=== PATIENT | male | born 1970 | race Caucasian/White ===

== ENCOUNTER 2021-03-02 08:27 | Day surgery (SDC) | payer BC ==
[2021-02-24 09:00] LABS: Basophils % 1.9 % (0-1.3); Hematocrit 45.4 % (39.6-49.0); Lymphocytes % 28.4 % (15.3-44.8); MPV 8.6 fL (7.6-11.3); RBC Red Blood Cell Count 5.33 M/uL (4.33-5.43)
--- NOTE | 2021-02-24 09:11 | RAD REPORT ---
EXAM DESCRIPTION: RAD - Chest Pa And Lat (2 Views) - 02/24/2021 8:49 am CLINICAL HISTORY: preop Chest pain. COMPARISON: No comparisons FINDINGS: The lungs are clear. The heart is normal in size. No displaced fractures. IMPRESSION: No acute or concerning finding suspected.
[2021-02-24 09:19] LABS: Potassium 4.8 mmol/L (3.5-5.1)
[2021-03-02] MEDS ORDERED: NA CHLORIDE 0.9% 1,000 ML ONE (09:07)
[2021-03-02] MEDS: CEFAZOLIN/SWI 1gm 1 GM/10 ML SYR ONE ×3 (09:45→10:55)
[2021-03-02] MEDS ORDERED: LIDOCAINE 1% MPF 5 ML VIAL ONE (10:47)
[2021-03-02] MEDS ORDERED: propofoL 200 MG/20 ML VIAL IV ONE (10:47)
[2021-03-02] MEDS ORDERED: MIDAZOLAM HCL 2 MG/2 ML INJ ONE (10:47)
[2021-03-02] MEDS ORDERED: FENTANYL CITR 100 MCG/2 ML ONE (10:47)
[2021-03-02] MEDS ORDERED: KETOROLAC 30 MG/ML INJ ONE (11:18)
[2021-03-02] MEDS ORDERED: ONDANSETRON 4 MG/2 ML VIAL ONE (11:18)
[2021-03-02] MEDS ORDERED: MEPERIDINE HCL 25 MG/ML SYR ONE (12:07)
[2021-03-02] MEDS ORDERED: PROMETHAZINE INJ 25 MG/ML AMP ONE (12:07)
[2021-03-02] MEDS ORDERED: HYDROCODONE/APAP 7.5/325 MG TAB ONE (12:36)
[2021-03-02 13:50] VITALS: BP 110/60; TEMP 98; O2SAT 98
--- NOTE | 2021-03-02 22:10 | OP ---
Date of Procedure: 03/02/2021 Surgeon: Sid Pierce MD Poleyard Supervisor: SURY Iqbal. Preoperative Diagnosis: Right back mass. Postoperative Diagnosis: Right back mass. Procedure: Wide excision of right back mass 6 x 3 cm with layered closure. Estimated Blood Loss: Minimal. Specimen: Right back mass. Findings: Likely sebaceous cyst. Anesthesia: General. Complications: None. Drains: Quarter-inch Ray. Disposition: The patient tolerated the procedure in stable condition, taken to Recovery in good gene ral condition. Procedure In Detail: The patient was brought to the OR and placed in supine position. General anest hesia begun. The patient was placed in left lateral position and then prepped and draped in usual st erile fashion. Marcaine 0.5% was infiltrated at the end of the case and then a 15 blade was used to make a 6 x 3 cm incision on the right mid back. Subcutaneous tissue was divided. Entire cyst identi fied and excised. Sent to Pathology as specimen. Wound was irrigated. Bleeding was controlled with cautery, and then Creola quarter-inch placed and secured with 3-0 nylon. 2-0 chromic used to reapp roximate the deep subcutaneous tissue and the subcutaneous tissue and 3-0 nylon used to close the ski n. Sterile dressing was applied. The patient was awakened and taken to Recovery in good general con dition. Discharge Note: The patient will go to Day Surgery and home when stable. Disposition: Home. Condition: Stable. Discharge Instructions: Resume home medications and diet. Activity as tolerated. No heavy lifting. Remove outer dressing in 2 days. Shower. Keep wound clean and dry. Follow up in my office in a aura mooney. Call for appointment. Tylenol No. 3 one tablet p.o. q.4 p.r.n. pain. Cipro 500 mg p.o. q.12. /MODL Voice ID: [id number] Report ID: [id number]
== END 2021-03-02 13:20 | disposition home or self-care (01) ==
LOC: OR 08:27
PROVIDERS: ATTEND Surgery
PROC: 0JB70ZZ Excision of Back Subcutaneous Tissue and Fascia, Open Approach (ICD-10-PCS; principal; 2021-03-02 10:00)
DX: L72.0 Epidermal cyst (principal); Z20.822 Contact with and (suspected) exposure to COVID-19
CPT/HCPCS: 93005; 85025; 80048; 36415; 82947 ×2; 88305; 71046; 11406; U0002; J2704; J2550; J2250; J3010; J2175; J0690; J7030; J2405; 88304

== ENCOUNTER 2025-01-01 05:28 | Inpatient (IN) | payer BC ==
--- OUTSIDE RECORDS SUMMARY | 2025-01-01 05:31 | XMS REPORT | Continuity of Care Document ---
Author Name Unknown Address [address] [place] [address] [place], [place] [address]ect Address [address] [place] [address] [address] [place] [address] Care Team Providers Care Cupola Melting Supervisor Name Role Phone Unavailable Unavailable Unavailable Encounters Start Date/Time End Date/Time Encounter Type Admission Type Attending Clinicians Care Facility Care Department Encounter ID Source 2022-01-30 07:54:01 Outpatient [facility] [id number] 2 [facility]
[2025-01-01] MEDS ORDERED: MORPHINE 4 MG/ML SYR ONE (06:23)
[2025-01-01] MEDS ORDERED: NA CHLORIDE 0.9% 1,000 ML ONE (06:23)
[2025-01-01] MEDS ORDERED: NA CHLORIDE 0.9% 100 ML ONE (06:23)
[2025-01-01] MEDS ORDERED: CEFEPIME 2 GM VIAL ONE (06:23)
[2025-01-01] MEDS ORDERED: ONDANSETRON 4 MG/2 ML VIAL ONE (06:23)
[2025-01-01 06:40] LABS: Absolute Basophils 0.1 K/uL (0-0.5); Absolute Eosinophils 0.1 K/uL (0-0.5); Absolute Lymphocytes (CBC) 1.3 K/uL (0.7-4.9); Absolute Monocytes 1.7 K/uL (0.1-1.3); Absolute Neutrophil 9.2 K/uL (1.8-8.0); Basophils % 0.6 % (0-1.3); Eosinophils % 0.8 % (0-4.4); Hematocrit 39.5 % (39.6-49.0); Hemoglobin 13.8 g/dL (13.6-17.9); Lymphocytes % 10.2 % (15.3-44.8); MCH 28.2 pg (27.0-35.0); MCV 80.6 fL (80-100); MPV 8.5 fL (7.6-11.3); Monocytes % 13.9 % (3.3-12.3); Neutrophils % 74.5 % (41.7-73.7); Platelets 273 thou/uL (152-406); Red Cell Distribution Width 14.6 % (12.1-15.2)
[2025-01-01 07:06] LABS: Albumin 2.8 g/dL (3.4-5.0); Albumin/Globulin Ratio 0.6 (1.1-1.8); Anion Gap 11.1 mEq/L (5.0-15.0); Bilirubin Total 0.9 mg/dL (0.2-1.0); Globulin 4.8 g/dL (2.3-3.5); Potassium 3.1 mEq/L (3.5-5.1); Protein, Total 7.6 g/dL (6.4-8.2)
--- NOTE | 2025-01-01 07:18 | RAD REPORT ---
Exam:Foot Right 3 View CLINICAL HISTORY: Right foot pain FINDINGS: No fracture or dislocation seen. Ulceration lateral soft tissue plantar aspect of the proximal forefoot. Prominent degenerative changes involve tarsometatarsal joints. Lucency within the cuboid probably a c yst Cortical irregularity involves the bases of several metatarsals. These could be degenerative in natur e or indicate osteomyelitis. MRI would be helpful for further evaluation. Calcaneal spurs
--- NOTE | 2025-01-01 07:39 | ER ---
Nurse's Notes [facility] Name: Joe Denson Age: 54 yrs Sex: Male : 1970 Arrival Date: 01/01/2025 Time: 05:28 Bed 8 Private MD: Diagnosis: Cellulitis of right lower limb;Acute right foot cellulitis, acute right foot plantar diabetic ulcer with infection, Presentation: 01/01 05:55 Chief complaint: Patient states: left foot pain swelling and redness problems off and kl on since June worsened since Sunday. Coronavirus screen: Vaccine status: Patient reports receiving the 2nd dose of the covid vaccine. Ebola Screen: Patient negative for fever greater than or equal to 101.5 degrees Fahrenheit, and additional compatible Ebola Virus Disease symptoms. Initial Sepsis Screen: Does the patient meet any 2 criteria? Does the patient have a suspected source of infection?. Risk Assessment: Do you want to hurt yourself or someone else? Patient reports no desire to harm self or others. 05:55 Method Of Arrival: Ambulatory kl 05:55 Acuity: ESTELITA 3 kl 05:59 Note [place] Triage Assessment: 05:57 General: Appears uncomfortable, well groomed, well developed, Behavior is calm, kl cooperative. Pain: Complains of pain in right foot. Derm:. Derm: redness and swelling to right foot and ankle. Musculoskeletal: Swelling present in right foot. Historical: - Allergies: 05:57 PENICILLINS; kl - PMHx: 05:57 diabetes mellitus; Hypercholesterolemia; Hypertensive disorder; kl - Immunization history:: Adult Immunizations up to date. - Infectious Disease History:: Denies. - Social history:: Smoking status: Patient denies any tobacco usage or history of. - Family history:: not pertinent. Screenin:14 [facility] ED Fall Risk Assessment (Adult) History of falling in the last 3 months, cp4 including since admission No falls in past 3 months (0 pts) Confusion or Disorientation No (0 pts) Intoxicated or Sedated No (0 pts) Impaired Gait No (0 pts) Mobility Assist Device Used No (0 pt) Altered Elimination No (0 pt) Score/Fall Risk Level 0 - 2 = Low Risk Oriented to surroundings, Maintained a safe environment, Assessed \T\ reinforced patient's understanding of fall precautions, Hourly rounding (assess needs \T\ fall precautionary measures) done. Abuse screen: Denies threats or abuse. Denies injuries from another. Nutritional screening: No deficits noted. Tuberculosis screening: No symptoms or risk factors identified. Assessment: 07:12 General: Appears in no apparent distress. uncomfortable, Behavior is calm, cooperative, cp4 appropriate for age. Pain: Complains of pain in right foot. Neuro: Level of Consciousness is awake, alert, obeys commands, Oriented to person, place, time, situation. Cardiovascular: Patient's skin is warm and dry. Respiratory: Airway is patent Respiratory effort is even, unlabored. GI: Reports diarrhea. : No signs and/or symptoms were reported regarding the genitourinary system. EENT: No signs and/or symptoms were reported regarding the EENT system. Derm: Reports pain wound to right foot. Musculoskeletal: No signs and/or symptoms reported regarding the musculoskeletal system. 09:10 Reassessment: Patient appears in no apparent distress at this time. Patient and/or db family updated on plan of care and expected duration. Pain level reassessed. Patient is alert, oriented x 3, equal unlabored respirations, skin warm/dry/pink. General: Appears in no apparent distress. comfortable, Behavior is calm, cooperative. Neuro: Level of Consciousness is awake, alert, obeys commands, Oriented to person, place, time, situation. 12:29 Reassessment: SEE [facility] FOR CONTINUED DOCUMENTATION. db Vital Signs: 05:55 BP 94 / 54; Pulse 62; Resp 18; Temp 98.1(O); Pulse Ox 100% ; Weight 123.38 kg (R); kl Height 6 ft. 0 in. ; Pain 7/10; 06:30 BP 117 / 74; Pulse 59; Resp 18; Pulse Ox 99% ; cp4 07:30 BP 115 / 57; Pulse 95; Resp 16; Pulse Ox 95% on R/A; db 08:00 BP 109 / 65; Pulse 98; Resp 16; Pulse Ox 95% on R/A; db 09:00 BP 112 / 65; Pulse 97; Resp 16; Pulse Ox 95% on R/A; db 05:55 Body Mass Index 36.89 (123.38 kg, 182.88 cm) kl 05:55 Pain Scale: Adult [place] Coma Score: 07:34 Eye Response: spontaneous(4). Motor Response: obeys commands(6). Verbal Response: sp4 oriented(5). Total: 15. ED Course: 05:32 Patient arrived in ED. gm2 05:42 Johnie Taylor MD is Attending Physician. sp4 05:57 Triage completed. kl 06:10 Dressings: Kerlix X 1; lateral side of right foot and arch of right foot 4X4s X 1; rv1 lateral side of right foot and arch of right foot. 06:14 Initial lab(s) drawn, by me, sent to lab. First set of blood cultures drawn Second set cp4 of blood cultures drawn. 06:19 Mary Cat is Primary Nurse. cp4 06:43 Foot Right 3 View XRAY In Process Unspecified. EDMS 07:00 Arm band placed on Patient placed in an exam room. db 07:14 No provider procedures requiring assistance completed. Inserted saline lock: 20 gauge cp4 in right antecubital area, using aseptic technique. Blood collected. Flushed with 10 mL NS. 07:14 Bed in low position. Call light in reach. Side rails up X 1. cp4 07:37 Sai Weldon MD is Hospitalizing Provider. sp4 09:12 Pulse ox on. NIBP on. db 12:29 Patient admitted, IV remains in place. db 12:29 Provided Education on: ADMISSION. db Administered Medications: 06:34 Drug: morphine IVP or IV 4 mg IVP once over 4 mins Route: IVP; Infused Over: 4 mins; cp4 Site: right antecubital; 09:10 Follow up: Response: No adverse reaction; Pain is decreased db 06:35 Drug: NS 0.9% IV 1000 ml IV at 1 bolus Per protocol; to be given as a bolus over 60 cp4 minutes Route: IV; Rate: 1 bolus; Site: right antecubital; 09:10 Follow up: Response: No adverse reaction; IV Status: Completed infusion; IV Intake: db 1000ml 06:35 Drug: Ondansetron IVP 4 mg IVP once; over 2 minutes Route: IVP; Site: right antecubital;cp4 09:09 Follow up: Response: No adverse reaction db 06:35 Drug: Cefepime IVPB 2 grams IVPB at 200 ml/hr once over 30 mins; (mix in NS 100 mL) cp4 Route: IVPB; Rate: 200 ml/hr; Infused Over: 30 mins; Site: right antecubital; 09:10 Follow up: Response: No adverse reaction; IV Status: Completed infusion; IV Intake: db 100ml 08:40 Drug: vancoMYCIN IVPB 2 grams IVPB at calculated rate once Route: IVPB; Rate: db calculated rate; Site: right antecubital; 17:31 Follow up: IV Status: Completed infusion bp Medication: 07:14 VIS not applicable for this client. cp4 Intake: 09:10 IV: 100ml; Total: 100ml. db 09:10 IV: 1000ml; Total: 1100ml. db Outcome: 07:38 Decision to Hospitalize by Provider. sp4 12:29 Admitted to ER Hold. [facility]. db 12:29 Condition: stable 12:29 Instructed on the need for admit, 18:48 Patient left the ED. iw Signatures: Dispatcher [employer] EDMS Mireya Hua RN RN kl Williams, Irene, RN RN iw Peltier, Brian, RN RN bp Benton, Danielle, RN RN db Villegas, Rebecca rv1 Potepalov, Sergey, MD MD sp4 Mary Cat Ginger 2 Corrections: (The following items were deleted from the chart) 05:57 05:57 PMHx: on antibiotic (bactrim) for staph infection; chaz ware
--- NOTE | 2025-01-01 07:39 | EDPHYS ---
Physician Documentation [facility] Name: Joe Denson Age: 54 yrs Sex: Male : 1970 Arrival Date: 01/01/2025 Time: 05:28 Bed 8 Private MD: ED Physician Johnie Taylor HPI: 01/01 05:42 This 54 yrs old Male presents to ER via Unassigned with complaints of Foot sp4 Pain, Swelling of Lower Extremity. 07:34 Patient presents with acute right foot pain tenderness redness and infected appearing sp4 diabetic foot ulcer. Historical: - Allergies: 05:57 PENICILLINS; kl - PMHx: 05:57 diabetes mellitus; Hypercholesterolemia; Hypertensive disorder; kl - Immunization history:: Adult Immunizations up to date. - Infectious Disease History:: Denies. - Social history:: Smoking status: Patient denies any tobacco usage or history of. - Family history:: not pertinent. ROS: 07:34 Constitutional: Negative for fever, chills, and weight loss, positive right foot pain, sp4 positive right foot tenderness, positive right foot redness, positive right foot diabetic ulcer 07:34 All other systems are negative, Exam: 07:34 Constitutional: This is a well developed, well nourished patient who is awake, alert, sp4 and in no acute distress. Head/Face: Normocephalic, atraumatic. Eyes: Pupils equal round and reactive to light, extra-ocular motions intact. Lids and lashes normal. Conjunctiva and sclera are not injected. Cornea within normal limits. Periorbital areas with no swelling, redness, or edema. ENT: Nares patent. No nasal discharge, no septal abnormalities noted. Tympanic membranes are normal and external auditory canals are clear. Oropharynx with no redness, swelling, or masses, exudates, or evidence of obstruction, uvula midline. Mucous membranes moist. Neck: Trachea midline, no thyromegaly or masses palpated, and no cervical lymphadenopathy. Supple, full range of motion without nuchal rigidity, or vertebral point tenderness. Chest/axilla: Normal chest wall appearance and motion. Nontender with no deformity. No lesions are appreciated. Cardiovascular: Regular rate and rhythm with a normal S1 and S2. No gallops, murmurs, or rubs. Normal PMI, no JVD. No pulse deficits. Respiratory: Lungs have equal breath sounds bilaterally, clear to auscultation and percussion. No rales, rhonchi or wheezes noted. No increased work of breathing, no retractions or nasal flaring. Abdomen/GI: Soft, with normal bowel sounds. No distension or tympany. No guarding or rebound. No evidence of tenderness throughout. Back: No spinal tenderness. No costovertebral tenderness. Skin: Warm, dry with normal turgor. Normal color with no rashes, no lesions, and no evidence of cellulitis. MS/ Extremity: Pulses equal, no cyanosis. Neurovascular intact. Right foot infected ulcer plantar to lateral surface. Right foot Redness, tenderness, pain and swelling. Neuro: Awake and alert, GCS 15, oriented to person, place, time, and situation. Cranial nerves II-XII grossly intact. Motor strength 5/5 in all extremities. Sensory grossly intact. Psych: Awake, alert, with orientation to person, place and time. Behavior, mood, and affect are within normal limits Vital Signs: 05:55 BP 94 / 54; Pulse 62; Resp 18; Temp 98.1(O); Pulse Ox 100% ; Weight 123.38 kg (R); kl Height 6 ft. 0 in. ; Pain 7/10; 06:30 BP 117 / 74; Pulse 59; Resp 18; Pulse Ox 99% ; cp4 07:30 BP 115 / 57; Pulse 95; Resp 16; Pulse Ox 95% on R/A; db 08:00 BP 109 / 65; Pulse 98; Resp 16; Pulse Ox 95% on R/A; db 09:00 BP 112 / 65; Pulse 97; Resp 16; Pulse Ox 95% on R/A; db 05:55 Body Mass Index 36.89 (123.38 kg, 182.88 cm) kl 05:55 Pain Scale: Adult kl Brett Coma Score: 07:34 Eye Response: spontaneous(4). Motor Response: obeys commands(6). Verbal Response: sp4 oriented(5). Total: 15. MDM: 05:56 Medical Screening Exam initiated sp4 07:30 ED course: Exam:Foot Right 3 View CLINICAL HISTORY: Right foot pain FINDINGS: No sp4 fracture or dislocation seen. Ulceration lateral soft tissue plantar aspect of the proximal forefoot. Prominent degenerative changes involve tarsometatarsal joints. Lucency within the cuboid probably a cyst Cortical irregularity involves the bases of several metatarsals. These could be degenerative in nature or indicate osteomyelitis. MRI would be helpful for further evaluation. Calcaneal spurs . 07:38 Differential diagnosis: fracture, sprain, foreign body, penetrating trauma, arthritis, sp4 cellulitis. Data reviewed: vital signs, nurses notes, lab test result(s), CBC, electrolytes, hepatic panel, radiologic studies. Consideration of Admission/Observation Escalation of care including admission/observation considered. 01/01 06:03 Order name: CBC with Diff; Complete Time: 07:05 sp4 01/01 06:03 Order name: CMP; Complete Time: 07:29 sp4 01/01 06:03 Order name: Lipase; Complete Time: 07:29 sp4 01/01 06:04 Order name: Hemoglobin A1c sp4 01/01 06:04 Order name: CRP; Complete Time: 07:29 sp4 01/01 06:04 Order name: Blood Culture Adult (2) sp4 01/01 09:53 Order name: Urinalysis w/ reflexes EDMS / 09:53 Order name: Basic Metabolic Panel EDMS / 09:53 Order name: Basic Metabolic Panel EDMS / 09:53 Order name: Basic Metabolic Panel EDMS / 09:53 Order name: Basic Metabolic Panel EDMS / 09:53 Order name: CBC with Automated Diff EDMS / 09:53 Order name: CBC with Automated Diff EDMS / 09:53 Order name: CBC with Automated Diff EDMS / 09:53 Order name: CBC with Automated Diff EDMS / 09:53 Order name: Magnesium EDMS / 09:53 Order name: Magnesium EDMS / 09:53 Order name: Magnesium EDMS / 09:53 Order name: Magnesium EDMS / 10:24 Order name: Vancomycin Level Trough EDMS 01/01 15:23 Order name: Glucose, Ancillary Testing EDMS 01/01 06:03 Order name: Foot Right 3 View XRAY; Complete Time: 07:29 sp4 01/01 10:10 Order name: Foot Right Wo Cont EDMS 01/01 09:48 Order name: CONS Physician Consult EDMS 01/01 06:03 Order name: IV Saline Lock; Complete Time: 06:19 sp4 01/01 06:03 Order name: Labs collected and sent; Complete Time: 06:19 sp4 Administered Medications: 06:34 Drug: morphine IVP or IV 4 mg IVP once over 4 mins Route: IVP; Infused Over: 4 mins; cp4 Site: right antecubital; 09:10 Follow up: Response: No adverse reaction; Pain is decreased db 06:35 Drug: NS 0.9% IV 1000 ml IV at 1 bolus Per protocol; to be given as a bolus over 60 cp4 minutes Route: IV; Rate: 1 bolus; Site: right antecubital; 09:10 Follow up: Response: No adverse reaction; IV Status: Completed infusion; IV Intake: db 1000ml 06:35 Drug: Ondansetron IVP 4 mg IVP once; over 2 minutes Route: IVP; Site: right antecubital;cp4 09:09 Follow up: Response: No adverse reaction db 06:35 Drug: Cefepime IVPB 2 grams IVPB at 200 ml/hr once over 30 mins; (mix in NS 100 mL) cp4 Route: IVPB; Rate: 200 ml/hr; Infused Over: 30 mins; Site: right antecubital; 09:10 Follow up: Response: No adverse reaction; IV Status: Completed infusion; IV Intake: db 100ml 08:40 Drug: vancoMYCIN IVPB 2 grams IVPB at calculated rate once Route: IVPB; Rate: db calculated rate; Site: right antecubital; 17:31 Follow up: IV Status: Completed infusion bp Disposition Summary: 01/01/25 07:38 Hospitalization Ordered Notes: Hospitalization Status: Inpatient Admission sp4 Provider: Sai Weldon spSha Condition: Stable sp4 Problem: new sp4 Symptoms: have improved sp4 Bed/Room Type: Standard sp4 Location: Telemetry/MedSurg (Inpatient)(01/01/25 17:11) kb3 Room Assignment: 214(01/01/25 17:11) kb3 Diagnosis - Cellulitis of right lower limb sp4 - Acute right foot cellulitis, acute right foot plantar diabetic ulcer with sp4 infection, Forms: - Medication Reconciliation Form sp4 - SBAR form sp4 - Leadership Thank You Letter sp4 Signatures: Dispatcher [employer] EDMireya Mata RN RN kl Desirae Eduardo RN RN kb3 Barbara Downey, RN RN db Johnie Taylor MD MD sp4 Mary Cat cp4 Jama Basurto RN bp Corrections: (The following items were deleted from the chart) 05:57 05:57 PMHx: on antibiotic (bactrim) for staph infection; kl kl 10:32 07:38 Telemetry/MedSurg (Inpatient) sp4 kb3 10:32 07:38 sp4 kb3 17:11 10:32 BR ER HOLD kb3 kb3 17:11 10:32 ERHOLD- kb3 kb3
[2025-01-01] MEDS: VANCOMYCIN 2 GM in NA CHLORIDE 0.9% 500 ML IVPB ONE (09:00)
--- NOTE | 2025-01-01 09:42 | P.HP ---
Certification for Inpatient Patient admitted to: Inpatient With expected LOS: <2 Midnights <Eve Ricci - Last Filed: 01/01/25 10:10> Patient History Date of Service: 01/01/25 Reason for admission: Right foot diabetic foot ulcer History of Present Illness: 54-year-old male with a past medical history of hypertension, diabetes type 2, presents to the emergency room with right foot ulcer that started 4 days ago. He reports injury 1 year ago, of a bilateral foot miller he reports left foot has healed, right foot had healed and then over the last week had gotten progressively worse. He reports right lateral foot drainage, blackened, area. He denied fever, chills, nausea vomiting, recent trauma. Plan to admit for sepsis secondary right lower extremity diabetic foot ulcer with with suspect ost eomyelitis surgery to consult Right lower extremity foot x-ray Ulceration lateral soft tissue plantar aspect of the proximal forefoot. Prominent degenerative changes involve tarsometatarsal joints. Lucency within the cuboid probably a cyst Cortical irregularity involves the bases of several metatarsals. These could be degenerative in nature or indicate osteomyelitis. MRI would be helpful for further evaluation. Laboratory evaluation mild hyponatremia 132, mild hypokalemia 3.1, blood glucose 140, elevated CRP 161, leukocytosis WBCs 12.30, left shift 74.5, <Eve Ricci - Last Filed: 01/01/25 10:10> Date of Service: 01/01/25 <Sai Weldon - Last Filed: 01/06/25 05:51> Allergies Penicillins Allergy (Verified 02/24/21 08:18) Hives Home Medications: Glimepiride 4 mg PO SEECOM 02/24/21 Multivitamin/Iron/Folic Acid [Centrum Adults Tablet] 1 tab PO DAILY 02/24/21 Valsartan/Hydrochlorothiazide [Valsartan-Hctz 320-25 mg Tab] 1 tab PO DAILY 02/24/21 Sitagliptin Phosphate [Januvia] 50 mg PO DAILY 01/01/25 Review of Systems 10-point ROS is otherwise unremarkable <Eve Ricci - Last Filed: 01/01/25 10:10> Physical Examination - Physical Exam General: Alert, In no apparent distress, Oriented x3 HEENT: Atraumatic, Normocephalic, PERRLA Neck: Supple, 2+ carotid pulse no bruit, JVD not distended Respiratory: Clear to auscultation bilaterally, Normal air movement Cardiovascular: No edema, Normal pulses, Regular rate/rhythm, Normal S1 S2 Capillary refill: <2 Seconds Gastrointestinal: Normal bowel sounds, Soft and benign, Non-distended Musculoskeletal: Other (Right lower extremity foot edema) Integumentary: Other (Right lower extremity cellulitis, diabetic foot ulcer with a dry dressing) Neurological: Normal speech, Normal strength at 5/5 x4 extr, Sensation intact - Studies Laboratory Data (last 24 hrs) 01/01/25 01/01/25 06:14 06:14 WBC 12.30 H Hgb 13.8 Hct 39.5 L Plt Count 273 Sodium 132 L Potassium 3.1 L BUN 19 H Creatinine 1.28 Glucose 140 H Total Bilirubin 0.9 AST 32 ALT 24 Alkaline Phosphatase 106 Lipase 30 <Eve Ricci - Last Filed: 01/01/25 10:10> Assessment and Plan - Problems (Diagnosis) (1) Sepsis Current Visit: Yes Status: Acute (2) Osteomyelitis of foot, right, acute Current Visit: Yes Status: Acute (3) Diabetic foot ulcer Current Visit: Yes Status: Acute Qualifiers: Diabetic foot ulcer location: midfoot Diabetes mellitus type: type 2 Laterality: right (4) Diabetes type 2 Current Visit: Yes Status: Acute Qualifiers: Diabetes mellitus halfway insulin use: without ocean transportation intermediary use Diabetes mellitus complication status: with skin complications (5) Hypertension Current Visit: Yes Status: Acute - Plan 54-year-old male with a past medical history of hypertension, diabetes type 2, presents to the emergency room with right foot ulcer that started 4 days ago. He reports injury 1 year ago, of a bilateral foot miller he reports left foot has healed, right foot had healed and then over the last week had gotten progressively worse. He reports right lateral foot drainage, blackened, area. He denied fever, chills, nausea vomiting, recent trauma. Plan to admit for sepsis secondary right lower extremity diabetic foot ulcer with with suspect osteomyelitis surgery to consult Right lower extremity foot x-ray Ulceration lateral soft tissue plantar aspect of the proximal forefoot. Prominent degenerative changes involve tarsometatarsal joints. Lucency within the cuboid probably a cyst Cortical irregularity involves the bases of several metatarsals. These could be degenerative in nature or indicate osteomyelitis. MRI would be helpful for further evaluation. Laboratory evaluation mild hyponatremia 132, mild hypokalemia 3.1, blood glucose 140, elevated CRP 161, leukocytosis WBCs 12.30, left shift 74.5, Assessment Sepsis secondary to right lower extremity diabetic foot ulcer with suspected osteomyelitis Surgery to consult IV fluids, IV antibiotics, Trend cultures, lactic, MRI of the right lower extremity Hypokalemia Hyponatremia Trend electrolytes replace as needed Diabetes type 2 Accu-Cheks, sliding scale insulin A1c Hypertension Resume appropriate home meds As needed antibiotic antihypertensive Full code DVT pending surgery course Diet n.p.o. for surgery to eval, Disposition Home independent prior Discharge Plan: Home - Advance Directives Does patient have a Living Will: No Does patient have a Durable POA for Healthcare: No - Code Status/Comfort Care Code Status: Full Code Critical Care: No Time Spent Managing Pts Care (In Minutes): 55 <Eve Ricci - Last Filed: 01/01/25 10:10> Date of Service: 01/01/25 Chart has been reviewed. Events of the last 24 hours have been noted. Case discussed with ASHLYN. I performed a substantial part of the MDM during this patient's care today. I personally made or approved the documented management plan and acknowledge its risk of complications. I agree with the findings and documentation provided in the ASHLYN's notes <Sia Weldon - Last Filed: 01/06/25 05:51>
[2025-01-01] MEDS ORDERED: ONDANSETRON 4 MG/2 ML VIAL IV PRN (09:46)
[2025-01-01] MEDS ORDERED: ALPRAZOLAM 0.25 MG TABLET PO PRN (09:46)
[2025-01-01] MEDS: NA CHLORIDE 0.9% 1,000 ML IV SCH (10:00)
--- NOTE | 2025-01-01 12:55 | RAD REPORT ---
Exam:Foot Right Wo Cont CLINICAL HISTORY: Foot pain and swelling Foot pain TECHNIQUE: Axial, sagittal and coronal magnetic resonance imaging right foot obtained Comparison: X-ray on the same date FINDINGS: Ulceration involves the plantar soft tissue proximal forefoot. Abnormal signal involves the proximal fifth metatarsal near the ulceration site probably osteomyeliti s. Additional abnormal signal involves the proximal aspects of the second, third and fourth metatarsals. Abnormal signal also involves the adjacent tarsal bones. Diffuse edema is present within the subcutaneous tissues IMPRESSION: Abnormal signal proximal fifth metatarsal probably osteomyelitis Abnormal signal involving the second through fourth proximal metatarsals and adjacent tarsal bones. T he majority if not all of this likely is secondary to reactive edema associated with degenerative changes. It would be difficult to detect a superimposed osteomyelitis.
[2025-01-01] MEDS: ACETAMINOPHEN 500 MG TAB PO PRN (19:48)
[2025-01-01] MEDS: CEFEPIME 2 GM in NA CHLORIDE 0.9% 100 ML IV SCH (19:48)
[2025-01-01] MEDS ORDERED: VANCOMYCIN 1.5 GM in NA CHLORIDE 0.9% 500 ML IVPB SCH (21:00)
[2025-01-01] MEDS: POTASSIUM CL SA 10 MEQ TAB PO ONE (22:45)
[2025-01-02] MEDS: VANCOMYCIN 2 GM in NA CHLORIDE 0.9% 500 ML IVPB SCH (03:54)
[2025-01-02 04:47] LABS: Absolute Basophils 0.1 K/uL (0-0.5); Absolute Eosinophils 0.2 K/uL (0-0.5); Absolute Lymphocytes (CBC) 1.7 K/uL (0.7-4.9); Absolute Neutrophil 8.4 K/uL (1.8-8.0); Basophils % 0.6 % (0-1.3); Eosinophils % 1.3 % (0-4.4); Hematocrit 32.5 % (39.6-49.0); Hemoglobin 11.2 g/dL (13.6-17.9); Lymphocytes % 14.2 % (15.3-44.8); MCH 27.9 pg (27.0-35.0); MCHC 34.4 g/dL (32.0-36.0); MCV 81.1 fL (80-100); MPV 8.2 fL (7.6-11.3); Monocytes % 15.9 % (3.3-12.3); Platelets 232 thou/uL (152-406); Red Cell Distribution Width 14.6 % (12.1-15.2)
[2025-01-02 05:07] LABS: Anion Gap 12.5 mEq/L (5.0-15.0); Magnesium 2.5 mg/dL (1.6-2.4); Potassium 3.5 mEq/L (3.5-5.1)
--- NOTE | 2025-01-02 09:00 | P.PN ---
Date of Service: 01/02/25 subjective N.p.o. for surgery today pain control as needed Review of Systems 10-point ROS is otherwise unremarkable Physical Examination - Physical Exam vital signs reviewed General: Alert, In no apparent distress, Oriented x3, afebrile HEENT: Atraumatic, Normocephalic, PERRLA Neck: Supple, 2+ carotid pulse no bruit, JVD not distended Respiratory: Clear to auscultation bilaterally, Normal air movement Cardiovascular: No edema, Normal pulses, Regular rate/rhythm, Normal S1 S2 Capillary refill: <2 Seconds Gastrointestinal: Normal bowel sounds, Soft and benign, Non-distended Musculoskeletal: Other (Right lower extremity foot edema) Integumentary: Other (Right lower extremity cellulitis, diabetic foot ulcer with a dry dressing) malodorous Neurological: Normal speech, Normal strength at 5/5 x4 extr, Sensation intact Assessment and Plan - Problems (Diagnosis) (1) Sepsis Current Visit: Yes Status: Acute (2) Osteomyelitis of foot, right, acute Current Visit: Yes Status: Acute (3) Diabetic foot ulcer Current Visit: Yes Status: Acute Qualifiers: Diabetic foot ulcer location: midfoot Diabetes mellitus type: type 2 Laterality: right (4) Diabetes type 2 Current Visit: Yes Status: Acute Qualifiers: Diabetes mellitus watermelon harvesting supervisor insulin use: without watermelon harvesting supervisor use Diabetes mellitus complication status: with skin complications (5) Hypertension Current Visit: Yes Status: Acute - Plan Assessment Sepsis secondary to right lower extremity diabetic foot ulcer with suspected osteomyelitis Surgery to consult IV fluids, IV antibiotics, Trend cultures, lactic, MRI of the right lower extremity / Debridement of the right foot necrotic foot ulcer (down to tendon and bone) Wound care following Infectious disease following Hypokalemia Hyponatremia Trend electrolytes replace as needed Diabetes type 2 uncontrolled 4+ glucosuria Accu-Cheks, sliding scale insulin A1c Hypertension Resume appropriate home meds As needed antibiotic antihypertensive Full code DVT pending surgery course Diet n.p.o. for surgery to eval, Disposition Home independent prior Discharge Plan: Home - Advance Directives Does patient have a Living Will: No Does patient have a Durable POA for Healthcare: No - Code Status/Comfort Care Code Status: Full Code Critical Care: No Time Spent Managing Pts Care (In Minutes): 35 <Eve Ricci - Last Filed: 01/03/25 07:08> Chart has been reviewed. Events of the last 24 hours have been noted. Case discussed with ASHLYN. I performed a substantial part of the MDM during this patient's care today. I personally made or approved the documented management plan and acknowledge its risk of complications. I agree with the findings and documentation provided in the ASHLYN's notes <Sai Weldon - Last Filed: 01/06/25 05:50>
[2025-01-02 10:50] LABS: Specific Gravity 1.027 (1.005-1.030); Sqamous Epithelial <5 /HPF (None Seen); Urine Bacteria <20 /HPF (<20); Urine Bilirubin NEGATIVE (Negative); Urine Blood Negative (Negative); Urine Clarity Extremely Turbid (Clear); Urine Color Yellow (Yellow); Urine Culture Reflex Order NOT NEEDED; Urine Glucose 4+ (Over) (Negative); Urine Ketones 2+ (Negative); Urine Microscopic Reflex YN ORDER UMIC; Urine Mucus Slight /HPF (None Seen); Urine Nitrite NEGATIVE (Negative); Urine Protein 1+ (Negative); Urine RBC None Seen /HPF (None Seen); Urine Urobilinogen 1+ (Normal); Urine WBC <5 /HPF (<5); Urine pH 5.5 (5.0-7.0)
[2025-01-02] MEDS: MORPHINE 4 MG/ML SYR IV ONE (10:59)
[2025-01-02] MEDS ORDERED: BUPIVACAINE 0.5% PF 10 ML VIAL ONE (12:49)
[2025-01-02] MEDS ORDERED: ONDANSETRON 4 MG/2 ML VIAL ONE (12:55)
[2025-01-02] MEDS ORDERED: FENTANYL CITR 100 MCG/2 ML ONE (12:55)
[2025-01-02] MEDS ORDERED: LIDOCAINE 2% MPF 5 ML VIAL ONE (12:55)
[2025-01-02] MEDS ORDERED: propofoL 200 MG/20 ML VIAL IV ONE (12:55)
[2025-01-02] MEDS ORDERED: MIDAZOLAM HCL 2 MG/2 ML INJ ONE (12:55)
--- NOTE | 2025-01-02 13:53 | P.BOP ---
Preoperative diagnosis: RIght foot necrotic infected diabetic ulcer Postoperative diagnosis: same Primary procedure: Excisional debridement of R foot necrotic infected diabetic ulcer [id number] Estimated blood loss: <10cc Specimen: culture Findings: necrotic tissue down to tendonand muscle Anesthesia: General Complications: None Transferred to: Recovery Room Condition: Good
[2025-01-02] MEDS: COLLAGENASE 30 GM OINTMENT TOP ONE (14:01)
[2025-01-02] MEDS: HYDROMORPHONE HCL 1 MG/ML INJ ONE (14:33)
[2025-01-02 14:42] VITALS: O2SAT 94
--- NOTE | 2025-01-02 14:42 | CON ---
Date of Consultation: 01/02/2025 Diagnosis: Diabetic right foot ulcer. History Of Present Illness: This is a case of a 54-year-old patient, comes to us with a large diabet ic ulcer that goes through and through into the dorsum of the foot with redness on the foot region an d an abscess too. He has a plantar ulcer for a long time. He is trying to deal with that on his own . He is trying to baby sit it. He claimed this started with bilateral foot miller when he stepped in something hot concrete and since he has neuropathy, he did not feel it. This area never healed. It has been like that for a year, but recently started to give purulent discharge and then the dorsum o f the foot suddenly became warm, swollen with fluctuance. Then, he was diagnosed with abscess, cellu litis, and a surgical consult was obtained for drainage. Allergies: PENICILLIN. Medications: Glimepiride, metformin, Bactrim, valsartan. Family History: Noncontributory. Past Medical History: Includes once again, diabetes. He does not smoke. He does not drink alcohol. Review of Systems: Ten points otherwise unremarkable. Physical Examination: Vital Signs: Reviewed. General: Patient is awake, alert. HEENT: Pupils are equal and reactive. Anicteric. Neck: Supple. Chest: Clear. Heart: S1, S2. Abdomen: Soft and depressible. Nontender, nondistended. Bowel sounds positive. Musculoskeletal: The patient has right foot cellulitis with a diabetic ulcer on the plantar surface. There is cellulitis and abscess on the dorsal aspect. We probed that area in the ER. It is connec ting and will need formal debridement and also most likely an open wound on the dorsum to allow this abscess to drain since he does not want to drain to the plantar surface. Dorsalis pedis pulses are m inimal bilaterally. He claimed that is chronic. He has peripheral neuropathy. Laboratory Data: WBC count is 12.3 with hemoglobin 11.2, potassium is 3.1, creatinine is 1.28. Foot MRI shows abnormal signal to proximal fifth metatarsal area, probably osteomyelitis. Also some abno rmal signals in the second through 4 proximal metatarsal region and adjacent tarsal bones, cannot rul e out osteomyelitis then either. Assessment: This is a 54-year-old patient with cellulitis in the foot, infected diabetic necrotic ul cer. The patient will need debridement, I and D of an abscess, most likely pulse lavage and the bene fits, alternatives, and risks fully explained to the patient which include, but not limited to infect ion, bleeding, damage to adjacent structures, anesthesia complication, nonhealing wound, MT, and even . He also understands this may not relieve symptoms, he might need more than one surgical inte rvention. He understood, signed a consent. He understands the importance and it is imperative that he follow his doctor recommendations and glucose control, offloading, proper wound care, and treatmen t for osteomyelitis and Dr. Botello is already on the case. HM/MODL Voice ID: [id number] Report ID: [id number]
[2025-01-02] MEDS: NA CHLORIDE 0.9% 1,000 ML ONE (15:40)
--- NOTE | 2025-01-02 15:42 | CON ---
History Of Present Illness: This is a 54-year-old male who has been consulted for evaluation and man agement of osteomyelitis of right foot. The patient has significant history of diabetes mellitus and diabetic neuropathy, hypertension, coming into the hospital because of his foot being infected for l ast 4 days. The patient has injury to his both feet 1 year ago when he walked on a hot deck, but sin ce then his left foot has healed completely and right foot had a wound, which was not healing. The p atient noticed that he has foul-smelling drainage coming out of his right foot 4 days ago and he trie d to self treat himself, finally end up coming to the hospital and was admitted for cellulitis and po ssible osteomyelitis of the right foot. The patient is currently on vancomycin and cefepime. Denies any headache, nausea, vomiting, chest pain, abdominal pain, constipation, or diarrhea. Past Medical History: As per HPI. Social History: Nonsmoker, nondrinker. Family History: Noncontributory. Medications: Cefepime and vancomycin. See MARS for other. Allergies: PENICILLIN. Review of Systems: A 10-point review was performed. Physical Examination: General: This is a 54-year-old male, lying in bed, not in any acute cardiopulmonary distress. Vital Signs: Temperature 98, pulse 62, respirations 16, blood pressure 111/59. HEENT: Unremarkable. Neck: Supple. Lungs: Basal crackles. Heart: S1, S2. Regular. Abdomen: Soft, nontender. Bowel sounds present. Extremities: Right foot wound and erythematous changes with purplish and yellowish discoloration not ed at the lateral aspect of the foot and a large ulcer also noted at the bottom at the fifth, fourth, and third metatarsal region. Foul odor also noted. Laboratory Data: Shows WBC 12.3, hemoglobin 11.2, platelets 232. Chemistry is BUN 27, creatinine 1. 02. Albumin level is 2.8. C-reactive protein is 161. Blood cultures are pending. MRI shows the pa kristen has osteomyelitis in fifth metatarsal and abnormal signal involving the second through fourth p roximal metatarsal and adjacent tarsal bone also noted. Assessment And Plan: A 54-year-old male with diabetic foot ulcer and diabetic neuropathy, coming in with cellulitis and osteomyelitis of fifth metatarsal, possible involvement of second, third, and fou rth metatarsal also according to MRI. The patient will need surgical intervention to clean the infec heather tissue. Depending on the surgery, we will recommend antibiotic 2-6 weeks if infected bone is sti ll present. Pending culture results. We will follow the patient closely. Monitor signs of infectio n with WBC and fever trends, leukocytosis. 1. Moderate protein-calorie malnourishment. 2. Leukocytosis. 3. We will follow the patient closely. NF/MODL Voice ID: [id number] Report ID: [id number]
--- NOTE | 2025-01-02 20:27 | OP ---
Date of Procedure: 01/02/2025 Surgeon: Willis Dill MD Preoperative Diagnoses: Right foot necrotic infected diabetic ulcers and cellulitis, abscess, necrot ic tissue. Postoperative Diagnoses: Right foot necrotic infected diabetic ulcers and cellulitis, abscess, necro tic tissue. Procedure: Excisional debridement of right foot necrotic infected diabetic ulcer, subcu 13 x 4 x 2 c m. Estimated Blood Loss: Less than 10 cc. Specimen: Culture. Findings: Necrotic tissue down to tendon and bone. Pulse lavage was done. Anesthesia: General plus local. Indications: This is a case of a 54-year-old patient with foul-smelling necrotic ulcer with cellulit is of the foot, not only the plantar surface, but also the dorsum has necrotic tissue present extendi ng from the plantar area, then laterally into the medial side. All that area needs to be removed. T his puts some tendons and muscle exposed. Benefits, alternatives, and risks of debridement were full y explained, which include, but not limited to infection, bleeding, damage to adjacent structures, an esthesia complication, nonhealing wound, DC, and even . He also understands this may not reliev e the symptoms. He might need more than one surgical intervention. He understood, signed a consent. Area of concern was marked by me and the patient in the holding room. Description Of Procedure: The patient was brought to the operating room, placed in supine position. Anesthesia was done without complication. Right foot was prepped and draped in the usual sterile fa shion. No local anesthesia was applied since patient has neuropathy. Incision was created on planta r surface and this necrotic tissue tracked laterally in the subcutaneous tissue and then connects alejandro silvano. When removed all that necrotic tissue, we have tendon and muscle exposed and we did pulse lav age all that area. All loculations explored and opened. Cultures were done previously. Hemostasis was obtained and the area was packed with Santyl wet-to-dry. The patient tolerated the procedure wel l. The patient was sent to recovery in stable condition. Sponge count and instrument count were cor rect. HM/MODL Voice ID: [id number] Report ID: [id number]
[2025-01-02] MEDS: BENZONATATE 100 MG CAP PO PRN (20:55)
[2025-01-02] MEDS: MORPHINE 4 MG/ML SYR IV PRN (21:44)
[2025-01-03 05:19] LABS: Absolute Basophils 0.1 K/uL (0-0.5); Absolute Eosinophils 0.3 K/uL (0-0.5); Absolute Lymphocytes (CBC) 1.8 K/uL (0.7-4.9); Absolute Monocytes 1.1 K/uL (0.1-1.3); Absolute Neutrophil 6.1 K/uL (1.8-8.0); Basophils % 0.7 % (0-1.3); Eosinophils % 3.6 % (0-4.4); Hematocrit 29.3 % (39.6-49.0); Hemoglobin 10.1 g/dL (13.6-17.9); Lymphocytes % 18.7 % (15.3-44.8); MCH 28.1 pg (27.0-35.0); MCHC 34.3 g/dL (32.0-36.0); MCV 81.8 fL (80-100); MPV 8.1 fL (7.6-11.3); Monocytes % 12.2 % (3.3-12.3); Neutrophils % 64.8 % (41.7-73.7); Platelets 245 thou/uL (152-406); RBC Red Blood Cell Count 3.59 M/uL (4.33-5.43); Red Cell Distribution Width 14.3 % (12.1-15.2)
[2025-01-03 05:34] LABS: Anion Gap 11.3 mEq/L (5.0-15.0); Magnesium 2.6 mg/dL (1.6-2.4); Potassium 3.3 mEq/L (3.5-5.1)
[2025-01-03] MEDS: POTASSIUM 25 MEQ EFFERV TAB PO ONE (09:13)
--- NOTE | 2025-01-03 14:47 | PN ---
Date of Progress Note: 01/03/2025 Status post debridement of a necrotic diabetic ulcer the patient is feeling better. Extre mity, intact surgical site. No shortness of breath. No chest pain. Plan: Follow up cultures. Dr. Botello has seen him from Infectious Disease standpoint and may need a PICC line for treatment of chronic osteomyelitis. From the surgical standpoint, continue wet-to-dry dressing and eventually may need a wound VAC. We advised the importance of diabetes control, blood pressure control, offloading and losing weight. HM/MODL Voice ID: [id number] Report ID: [id number]
[2025-01-04 05:52] LABS: Absolute Basophils 0.1 K/uL (0-0.5); Absolute Eosinophils 0.4 K/uL (0-0.5); Absolute Lymphocytes (CBC) 1.9 K/uL (0.7-4.9); Absolute Neutrophil 4.4 K/uL (1.8-8.0); Basophils % 1.4 % (0-1.3); Eosinophils % 5.3 % (0-4.4); Hematocrit 29.6 % (39.6-49.0); Hemoglobin 10.4 g/dL (13.6-17.9); Lymphocytes % 23.7 % (15.3-44.8); MCH 28.4 pg (27.0-35.0); MCV 81.1 fL (80-100); MPV 7.9 fL (7.6-11.3); Monocytes % 13.2 % (3.3-12.3); Neutrophils % 56.4 % (41.7-73.7); Platelets 270 thou/uL (152-406); RBC Red Blood Cell Count 3.65 M/uL (4.33-5.43); Red Cell Distribution Width 14.3 % (12.1-15.2)
[2025-01-04 06:21] LABS: Anion Gap 9.4 mEq/L (5.0-15.0); Magnesium 2.6 mg/dL (1.6-2.4); Potassium 3.4 mEq/L (3.5-5.1)
--- NOTE | 2025-01-04 07:57 | P.PN ---
Date of Service: 01/03/25 subjective PICC line for IV antibiotics, infectious disease consulted for osteomyelitis, pain control as needed analgesia PT for DME eval Review of Systems 10-point ROS is otherwise unremarkable Physical Examination - Physical Exam vital signs reviewed General: Alert, In no apparent distress, Oriented x3, afebrile HEENT: Atraumatic, Normocephalic, PERRLA Neck: Supple, 2+ carotid pulse no bruit, JVD not distended Respiratory: Clear to auscultation bilaterally, equal unlabored Cardiovascular: No edema, Normal pulses, Regular rate/rhythm, Capillary refill: <2 Seconds Gastrointestinal: Normal bowel sounds, nontender Musculoskeletal: Other (Right lower extremity foot edema), Integumentary: Other (Right lower extremity cellulitis, diabetic foot ulcer with a dry dressing) malodorous Neurological: Normal speech, Normal strength at 5/5 x4 extr, Sensation intact Assessment and Plan - Problems (Diagnosis) (1) Sepsis Current Visit: Yes Status: Acute (2) Osteomyelitis of foot, right, acute Current Visit: Yes Status: Acute (3) Diabetic foot ulcer Current Visit: Yes Status: Acute Qualifiers: Diabetic foot ulcer location: midfoot Diabetes mellitus type: type 2 Laterality: right (4) Diabetes type 2 Current Visit: Yes Status: Acute Qualifiers: Diabetes mellitus custodial insulin use: without buttermaker helper use Diabetes mellitus complication status: with skin complications (5) Hypertension Current Visit: Yes Status: Acute - Plan Assessment Sepsis secondary to right lower extremity diabetic foot ulcer with suspected osteomyelitis Surgery to consult IV fluids, IV antibiotics, Trend cultures, lactic, MRI of the right lower extremity 01/02 Debridement of the right foot necrotic foot ulcer (down to tendon and bone) Wound care following Infectious disease following PT eval for DME needs PICC ordered for IV ABX SS consulted for HHC, SN, Wound care Hypokalemia Hyponatremia Trend electrolytes replace as needed Diabetes type 2 uncontrolled 4+ glucosuria Accu-Cheks, sliding scale insulin A1c Hypertension Resume appropriate home meds As needed antibiotic antihypertensive Full code DVT pending surgery course Diet n.p.o. for surgery to eval, Disposition Home independent prior Discharge Plan: Home - Advance Directives Does patient have a Living Will: No Does patient have a Durable POA for Healthcare: No - Code Status/Comfort Care Code Status: Full Code Critical Care: No Time Spent Managing Pts Care (In Minutes): 35 <Moosa,Eve - Last Filed: 01/04/25 16:44> Chart has been reviewed. Events of the last 24 hours have been noted. Case discussed with ASHLYN. I performed a substantial part of the MDM during this patien t's care today. I personally made or approved the documented management plan and acknowledge its risk of complications. I agree with the findings and documentation provided in the ASHLYN's notes <Sai Weldon - Last Filed: 01/06/25 05:50>
[2025-01-04] MEDS: Mupirocin NASAL 2 APPL/1 GM TUBE NAS SCH (09:22)
--- NOTE | 2025-01-04 16:51 | P.PN ---
Date of Service: 01/04/25 subjective surgical services asst consulted for home health at discharge PICC line for IV antibiotics, infectious disease consulted for osteomyelitis, PT for DME eval Dietitian consulted for education on diabetes, Review of Systems 10-point ROS is otherwise unremarkable Physical Examination - Physical Exam vital signs reviewed General: Alert, In no apparent distress, Oriented x3, HEENT: Atraumatic, Normocephalic, PERRLA Respiratory: Clear to auscultation bilaterally, equal unlabored Cardiovascular: Normal pulses, Regular rate/rhythm, Capillary refill: <2 Seconds Gastrointestinal: Normal bowel sounds, nontender Musculoskeletal: Other (Right lower extremity foot edema), unsteady gait Integumentary: Other (Right lower extremity cellulitis, diabetic foot ulcer with a dry dressing) malodorous Neurological: Normal speech, Normal strength at 5/5 x4 extr, Assessment and Plan - Problems (Diagnosis) (1) Sepsis Current Visit: Yes Status: Acute (2) Osteomyelitis of foot, right, acute Current Visit: Yes Status: Acute (3) Diabetic foot ulcer Current Visit: Yes Status: Acute Qualifiers: Diabetic foot ulcer location: midfoot Diabetes mellitus type: type 2 Laterality: right (4) Diabetes type 2 Current Visit: Yes Status: Acute Qualifiers: Diabetes mellitus watermaster insulin use: without watermaster use Diabetes mellitus complication status: with skin complications (5) Hypertension Current Visit: Yes Status: Acute - Plan Assessment Sepsis secondary to right lower extremity diabetic foot ulcer with suspected osteomyelitis Surgery to consult IV fluids, IV antibiotics, Trend cultures, lactic, MRI of the right lower extremity 01/02 Debridement of the right foot necrotic foot ulcer (down to tendon and bone) Wound care following Infectious disease following PT eval for DME needs PICC ordered for IV ABX SS consulted for HHC, SN, Wound care Blood cultures no growth Wound cultures gram-positive cocci, plus [id number] vancomycin, cefepime Hypokalemia Hyponatremia Trend electrolytes replace as needed Diabetes type 2 uncontrolled 4+ glucosuria Accu-Cheks, sliding scale insulin A1c ordered Dietitian consult Started on Lantus 15 units daily Hypertension Resume appropriate home meds As needed antibiotic antihypertensive Full code DVT pending surgery course Diet n.p.o. for surgery to eval, Disposition Home independent prior Discharge Plan: Home - Advance Directives Does patient have a Living Will: No Does patient have a Durable POA for Healthcare: No - Code Status/Comfort Care Code Status: Full Code Critical Care: No Time Spent Managing Pts Care (In Minutes): 35 <Eve Ricci - Last Filed: 01/04/25 16:51> Chart has been reviewed. Events of the last 24 hours have been noted. Case discussed with ASHLYN. I performed a substantial part of the MDM during this patient's care today. I personally made or approved the documented management p jc and acknowledge its risk of complications. I agree with the findings and documentation provided in the ASHLYN's notes <Sai Weldon - Last Filed: 01/06/25 05:50>
[2025-01-04] MEDS: INSULIN GLARGINE 100 UNIT/ML SQ SCH (17:45)
[2025-01-04] MEDS: HYDROCODONE/APAP 5/325 MG TAB PO PRN (18:30)
[2025-01-05 06:07] LABS: Absolute Basophils 0.1 K/uL (0-0.5); Absolute Eosinophils 0.4 K/uL (0-0.5); Absolute Lymphocytes (CBC) 2.1 K/uL (0.7-4.9); Absolute Neutrophil 4.2 K/uL (1.8-8.0); Basophils % 1.1 % (0-1.3); Eosinophils % 5.2 % (0-4.4); Hematocrit 30.7 % (39.6-49.0); Hemoglobin 10.5 g/dL (13.6-17.9); Lymphocytes % 26.7 % (15.3-44.8); MCH 28.2 pg (27.0-35.0); MCHC 34.3 g/dL (32.0-36.0); MCV 82.3 fL (80-100); MPV 7.5 fL (7.6-11.3); Monocytes % 13.3 % (3.3-12.3); Neutrophils % 53.7 % (41.7-73.7); Nucleated Red Blood Cells % 0.1 % (0-0); Platelets 359 thou/uL (152-406); RBC Red Blood Cell Count 3.73 M/uL (4.33-5.43); Red Cell Distribution Width 14.4 % (12.1-15.2)
[2025-01-05 06:25] LABS: Anion Gap 8.7 mEq/L (5.0-15.0); Magnesium 2.4 mg/dL (1.6-2.4); Potassium 3.7 mEq/L (3.5-5.1)
[2025-01-05] MEDS: NA CHLORIDE 0.9% 0 ML ONE (08:42)
--- NOTE | 2025-01-05 14:53 | PN ---
Subjective: The patient lying in bed. No new acute event. Had surgical debridement done on Sunday. The patient denies any problems with antibiotics. No nausea, vomiting, chest pain, abdominal pain, constipation, diarrhea, waiting for PICC line and home health company to arrange for antibiotic and wound care. Objective: Vital signs: Reviewed. Lungs: Basal crackles. Heart: S1, S2. Regular. Abdomen: Soft, nontender. Bowel sounds present. Extremity: Trace edema. Wound noted. Laboratory Data: WBC 7.9, hemoglobin 10.5, platelets 359. Chemistry shows BUN of 13, creatinine 0.7 , glucose level is in . A1c is of 10.2. Assessment And Plan: 1. Diabetic foot ulcer and diabetic neuropathy. 2. Leukocytosis has subsided. 3. Anemia. 4. Status post debridement osteomyelitis of fifth metatarsal. Also questionable involvement of secon d, third, and fourth metatarsal. Recommend: Antibiotic for 6 weeks. Recommend to bring down the fasting blood sugar between 100 to 1 50 and continue to monitor blood sugar levels closely. We will follow the patient closely. Monitor signs of infection with WBC and fever trends. NF/MODL Voice ID: [id number] Report ID: [id number]
[2025-01-05] MEDS: METOPROLOL TAR 25 MG TAB PO ONE (16:00)
[2025-01-05] MEDS: METOPROLOL TAR 25 MG TAB PO SCH (18:38)
[2025-01-05] MEDS: LOSARTAN POTASSIUM 50 MG TABLET PO SCH (21:02)
--- NOTE | 2025-01-06 05:50 | P.PN ---
Date of Service: 01/05/25 Subjective Patient is a 54-year-old gentleman who came to the hospital with an infected foot ulcer. Type patient was taken to the OR by general surgery and the wound was extended to the dorsal aspect of the foot. Patient will need outpatient IV antibiotics. These are being arranged at this time. Wound care will be continued with home health. Patient will follow-up at wound healing center with general surgery. Anticipate discharge over the next 48 hours. Physical Examination Vital signs reviewed - Physical Exam General: Alert, In no apparent distress, Oriented x3, HEENT: Within normal limits Respiratory: Clear to auscultation bilaterally, equal unlabored Cardiovascular: Normal pulses, Regular rate/rhythm, Gastrointestinal: Normal bowel sounds, nontender Musculoskeletal: Other (Right lower extremity foot edema), unsteady gait Integumentary: Other (Right lower extremity cellulitis, diabetic foot ulcer with a dry dressing) Neurological: Neuropathy of the lower extremities but otherwise no focal deficits Assessment and Plan - Problems (Diagnosis) (1) Sepsis Current Visit: Yes Status: Acute (2) Osteomyelitis of foot, right, acute Current Visit: Yes Status: Acute (3) Diabetic foot ulcer Current Visit: Yes Status: Acute Qualifiers: Diabetic foot ulcer location: midfoot Diabetes mellitus type: type 2 Laterality: right (4) Diabetes type 2 Current Visit: Yes Status: Acute Qualifiers: Diabetes mellitus manager terminal insulin use: without manager terminal use Diabetes mellitus complication status: with skin complications (5) Hypertension Current Visit: Yes Status: Acute - Plan PLAN Sepsis secondary to right lower extremity diabetic foot ulcer with suspected o steomyelitis secondary to strep agalactiae Surgery consultation appreciated; patient status post debridement and. Continue with wound care and IV antibiotics. / Debridement of the right foot necrotic foot ulcer (down to tendon and bone) Wound care following Infectious disease following PT eval for DME needs; Bariatric walker in place PICC ordered for IV ABX SS consulted for HHC, SN, Wound care Blood cultures no growth Wound cultures gram-positive cocci, plus wunf-avaxuttm-or vancomycin, cefepime Hypokalemia Hyponatremia Trend electrolytes replace as needed Diabetes type 2 uncontrolled Continue with Lantus 15 units daily; strict blood sugar control Hypertension Resume appropriate home meds As needed antibiotic antihypertensive Full code DVT pending surgery course Diet n.p.o. for surgery to eval, Disposition Home independent prior Discharge Plan: Home - Advance Directives Does patient have a Living Will: No Does patient have a Durable POA for Healthcare: No - Code Status/Comfort Care Code Status: Full Code Critical Care: No Time Spent Managing Pts Care (In Minutes): 30
[2025-01-06 06:12] LABS: Absolute Basophils 0.1 K/uL (0-0.5); Absolute Eosinophils 0.4 K/uL (0-0.5); Absolute Lymphocytes (CBC) 2.3 K/uL (0.7-4.9); Absolute Monocytes 0.9 K/uL (0.1-1.3); Basophils % 1.4 % (0-1.3); Eosinophils % 4.1 % (0-4.4); Hematocrit 29.9 % (39.6-49.0); Hemoglobin 10.4 g/dL (13.6-17.9); Lymphocytes % 26.5 % (15.3-44.8); MCH 28.2 pg (27.0-35.0); MCHC 34.8 g/dL (32.0-36.0); MCV 81.1 fL (80-100); MPV 7.9 fL (7.6-11.3); Monocytes % 10.4 % (3.3-12.3); Neutrophils % 57.6 % (41.7-73.7); Platelets 362 thou/uL (152-406); RBC Red Blood Cell Count 3.69 M/uL (4.33-5.43); Red Cell Distribution Width 14.3 % (12.1-15.2)
[2025-01-06 06:27] LABS: Anion Gap 7.6 mEq/L (5.0-15.0); Magnesium 2.1 mg/dL (1.6-2.4); Potassium 3.6 mEq/L (3.5-5.1)
--- NOTE | 2025-01-06 08:19 | RAD REPORT ---
EXAMINATION: ONE VIEW CHEST XR CLINICAL INDICATION: Male, 54 years old.,PICC LIne placement TECHNIQUE: Frontal chest projection is submitted. Examination is limited by patient positioning and t echnique. COMPARISON: 02/24/2021 FINDINGS: Left arm PICC in place with catheter tip at the level of the distal SVC. Lungs are suboptimally infla heather. Central interstitial prominence, a new finding since prior exam. No focal consolidation. No pneumothorax or sizable effusion. The heart is normal in size. Mediastinal contours are unchanged wit h tortuosity of the thoracic aorta. IMPRESSION: Left arm PICC in satisfactory position. Central interstitial prominence which may reflect central congestion or early CHF.
[2025-01-06 09:23] LABS: Band Neutrophils 1 % (0-1); Differential Total Cells Count 100; Eosinophils 2 % (0-3); Lymphocytes 24 % (15-42); Metamyelocytes 1 % (0-0); Monocytes 6 % (0-10); Myelocytes 1 % (0-0); Segmented Neutrophils 63 % (40-80)
[2025-01-06 09:24] LABS: Blood Morphology Comment NOT SEEN (NOT SEEN); Platelet Estimate ADEQ
[2025-01-06] MEDS: POTASSIUM CL SA 10 MEQ TAB PO ONE (09:24)
[2025-01-06 11:51] VITALS: BMI 36.8
[2025-01-06] MEDS: CEFTRIAXONE 2,000 MG in NA CHLORIDE 0.9% 100 ML IV SCH (12:10)
--- NOTE | 2025-01-06 12:10 | PN ---
Subjective: The patient is lying in bed. Got PICC line today in his left arm. Denies any other pro blems. Objective: Vital Signs: Reviewed. Lungs: Basal crackles. Heart: S1, S2. Regular. Abdomen: Soft, nontender. Bowel sounds present. Extremities: No edema. Wounds noted to the right foot. Laboratory Data: WBC 8.6, hemoglobin 10.4, platelets 362. Chemistry shows BUN of 11, creatinine 0.8 . Blood sugars are running in 250s. Wound culture, Streptococcus agalactiae, group B. Assessment And Plan: Right foot osteomyelitis with diabetic foot ulcer and uncontrolled diabetes farideh litus, diabetic neuropathy. We will recommend to switch patient to Cipro and Rocephin, total of 6 we eks. To be followed by surgical wound care team. We will follow the patient as needed. NF/MODL Voice ID: [id number] Report ID: [id number]
[2025-01-06 16:04] VITALS: BP 176/95; TEMP 97.7
--- NOTE | 2025-01-06 16:41 | P.DS ---
Admission Date: 01/01/25 Discharge Date: 01/06/25 Reason for Admission: Right foot diabetic foot ulcer Brief History of Present Illness: Diagnosis Sepsis secondary to right lower extremity diabetic foot ulcer with suspected osteomyelitis secondary to strep agalactiae Hypokalemia Hyponatremia Diabetes type 2 uncontrolled HPI 01/02/2025 54-year-old male with a past medical history of hypertension, diabetes type 2, presents to the emergency room with right foot ulcer that started 4 days ago. He reports injury 1 year ago, of a bilateral foot miller he reports left foot has healed, right foot had healed and then over the last week had gotten progressively worse. He reports right lateral foot drainage, blackened, area. He denied fever, chills, nausea vomiting, recent trauma. Plan to admit for sepsis secondary right lower extremity diabetic foot ulcer with with suspect osteomyelitis surgery to consult Right lower extremity foot x-ray Ulceration lateral soft tissue plantar aspect of the proximal forefoot. Prominent degenerative changes involve tarsometatarsal joints. Lucency within the cuboid probably a cyst Cortical irregularity involves the bases of several metatarsals. These could be degenerative in nature or indicate osteomyelitis. MRI would be helpful for further evaluation. Laboratory evaluation mild hyponatremia 132, mild hypokalemia 3.1, blood glucose 140, elevated CRP 161, leukocytosis WBCs 12.30, left shift 74.5, Hospital Course: Patient was admitted and treated for the following diagnosis. Sepsis secondary to right lower extremity diabetic foot ulcer with suspected osteomyelitis secondary to strep agalactiae Dr. Dill, status post debridement, Discharge with Continued with wound care and IV antibiotics. 01/02 Debridement of the right foot necrotic foot ulcer (down to tendon and bone) Infectious disease recommend IV Rocephin and ciprofloxacin p.o. PT eval for DME needs; Bariatric walker in place consulted for HHC, SN, Wound care Blood cultures no growth Wound cultures Streptococcus Agalactiae Grp B Hypokalemia Hyponatremia Potassium and sodium improved and stabilized Diabetes type 2 uncontrolled Continued with Lantus 15 units daily Accu-Chek with sliding scale insulin Hypertension Resumed appropriate home meds On 01/06/2025, Joe was seen on morning rounds and deemed hemodynamically stable. Dr. Dill's evaluated and cleared him for discharge with follow-up in his wound clinic and continued antibiotic treatment for 6 weeks. Physical Exam General: Alert and Oriented x3, NAD Respiratory: Clear BBS, on RA Cardiovascular: Normal pulses, RRR, S1 S2 present Gastrointestinal: Normal bowel sounds, nontender Musculoskeletal: Other (Right lower extremity foot edema), unsteady gait Integumentary: Other (Right lower extremity cellulitis, diabetic foot ulcer with a dry dressing) Neurological: Neuropathy of the lower extremities but otherwise no focal deficits <Saadia Henry - Last Filed: 01/06/25 18:22> Admission Date: 01/01/25 Discharge Date: 01/06/25 Hospital Course: I have personally seen and evaluated the patient. I have reviewed the history, physical exam findings, and assessment provided by Kezia Henry NP. I agree with the plan of care as documented <Sapna Rosenbaum - Last Filed: 01/06/25 23:46> Disposition: [facility]/HOME HEALTH CARE Vital Signs/Physical Exam: Temp Pulse Resp BP Pulse Ox 97.7 F 71 15 176/95 H 98 01/06/25 16:00 01/06/25 16:00 01/06/25 16:00 01/06/25 16:00 01/06/25 16:00 Laboratory Data at Discharge: WBC 8.60 thou/uL (4.3-10.9) 01/06/25 05:45 Hgb 10.4 g/dL (13.6-17.9) L 01/06/25 05:45 Hct 29.9 % (39.6-49.0) L 01/06/25 05:45 Plt Count 362 thou/uL (152-406) 01/06/25 05:45 Sodium 138 mEq/L (136-145) 01/06/25 05:45 Potassium 3.6 mEq/L (3.5-5.1) 01/06/25 05:45 BUN 11 mg/dL (7-18) 01/06/25 05:45 Creatinine 0.85 mg/dL (0.70-1.30) 01/06/25 05:45 Glucose 273 mg/dL (74-106) H 01/06/25 05:45 Magnesium 2.1 mg/dL (1.6-2.4) 01/06/25 05:45 Total Bilirubin 0.9 mg/dL (0.2-1.0) 01/01/25 06:14 AST 32 U/L (15-37) 01/01/25 06:14 ALT 24 U/L (16-61) 01/01/25 06:14 Alkaline Phosphatase 106 U/L (45-117) 01/01/25 06:14 Lipase 30 U/L (13-75) 01/01/25 06:14 <Saadia Henry - Last Filed: 01/06/25 18:22> Vital Signs/Physical Exam: Temp Pulse Resp BP Pulse Ox 97.7 F 71 15 176/95 H 98 01/06/25 16:00 01/06/25 17:50 01/06/25 16:00 01/06/25 17:50 01/06/25 16:00 Laboratory Data at Discharge: WBC 8.60 thou/uL (4.3-10.9) 01/06/25 05:45 Hgb 10.4 g/dL (13.6-17.9) L 01/06/25 05:45 Hct 29.9 % (39.6-49.0) L 01/06/25 05:45 Plt Count 362 thou/uL (152-406) 01/06/25 05:45 Sodium 138 mEq/L (136-145) 01/06/25 05:45 Potassium 3.6 mEq/L (3.5-5.1) 01/06/25 05:45 BUN 11 mg/dL (7-18) 01/06/25 05:45 Creatinine 0.85 mg/dL (0.70-1.30) 01/06/25 05:45 Glucose 273 mg/dL (74-106) H 01/06/25 05:45 Magnesium 2.1 mg/dL (1.6-2.4) 01/06/25 05:45 Total Bilirubin 0.9 mg/dL (0.2-1.0) 01/01/25 06:14 AST 32 U/L (15-37) 01/01/25 06:14 ALT 24 U/L (16-61) 01/01/25 06:14 Alkaline Phosphatase 106 U/L (45-117) 01/01/25 06:14 Lipase 30 U/L (13-75) 01/01/25 06:14 <Sapna Rosenbaum - Last Filed: 01/06/25 23:46> Diet: Regular Activity: Fall precautions <Saadia Henry - Last Filed: 01/06/25 18:22> <RobiSapna - Last Filed: 01/06/25 23:46> Home Medications: Glimepiride 4 mg PO SEECOM 02/24/21 Multivitamin/Iron/Folic Acid [Centrum Adults Tablet] 1 tab PO DAILY 02/24/21 Valsartan/Hydrochlorothiazide [Valsartan-Hctz 320-25 mg Tab] 1 tab PO DAILY 02/24/21 Sitagliptin Phosphate [Januvia] 50 mg PO DAILY 01/01/25 Benzonatate [Tessalon Perle*] 100 mg PO TID PRN 5 Days #15 cap 01/06/25 Ciprofloxacin HCl [Cipro 500 MG Tablet] 500 mg PO BID 42 Days #84 tab 01/06/25 Losartan Potassium [Cozaar*] 50 mg PO BID 30 Days #60 tab 01/06/25 Metoprolol Tartrate [Lopressor*] 25 mg PO BID 6AM 6PM 30 Days #60 tab 01/06/25 New Medications: Ciprofloxacin HCl [Cipro 500 MG Tablet] 500 mg PO BID 42 Days #84 tab Losartan Potassium [Cozaar*] 50 mg PO BID 30 Days #60 tab Metoprolol Tartrate [Lopressor*] 25 mg PO BID 6AM 6PM 30 Days #60 tab Benzonatate [Tessalon Perle*] 100 mg PO TID PRN 5 Days #15 cap PRN Reason: Cough Physician Discharge Instructions: 1. Please call and schedule a follow-up appointment with your PCP in 3-5 days - Please follow-up with your PCP for medication refills/adjustments -Rocephin 1 g daily IV x 6 weeks 2. Please call and schedule a follow-up appointment with Dr. Dill wound clinic in one week 3. Continue consistent carb diet 4. activity restrictions fall precaution 5. Return to the ED if symptoms worsen New medications Ciprofloxacin 500 mg twice daily x 42 days Losartan 50 mg twice daily Metoprolol 25 mg twice daily Tessalon Perles 100 mg 3 times daily x 15 doses Followup: Jeff Cruz DO [Primary Care Provider] -
[2025-01-06] MEDS ORDERED: CIPROFLOXACIN 400mg IV 400 MG/200 ML BAG IV SCH (21:00)
== END 2025-01-06 18:40 | disposition home health service (06) | DRG 854 ==
LOC: ER 05:28 → ERHOLD 09:42 → 2ND 19:13
PROVIDERS: ADMIT Hospitalist; ATTEND Family Medicine
PROC: 0KBV0ZZ Excision of Right Foot Muscle, Open Approach (ICD-10-PCS; principal; 2025-01-02 15:30)
PROC: 02HV33Z Insertion of Infusion Device into Superior Vena Cava, Percutaneous Approach (ICD-10-PCS; 2025-01-06)
DX: A40.1 Sepsis due to streptococcus, group B (principal); E87.1 Hypo-osmolality and hyponatremia; L03.115 Cellulitis of right lower limb; M86.171 Other acute osteomyelitis, right ankle and foot; L02.611 Cutaneous abscess of right foot; E11.69 Type 2 diabetes mellitus with other specified complication; E11.621 Type 2 diabetes mellitus with foot ulcer; E11.51 Type 2 diabetes mellitus with diabetic peripheral angiopathy without gangrene; E11.628 Type 2 diabetes mellitus with other skin complications; L97.519 Non-pressure chronic ulcer of other part of right foot with unspecified severity; E78.00 Pure hypercholesterolemia, unspecified; D64.9 Anemia, unspecified; I10 Essential (primary) hypertension; E87.6 Hypokalemia; Z88.0 Allergy status to penicillin; Z79.899 Other long term (current) drug therapy
CPT/HCPCS: 36415; 36569; 71045; 80048; 80053; 80202; 81001; 82947; 83036; 83690; 83735; 85025; 86140; 87040; 87070; 87075; 87077; 87186; 87205; 88304; 94010; 96365; 96366; 96375; 97116; 97161; 99285; J0692; J0696; J1171; J2003; J2250; J2405; J2704; J3010; J3370; J3590; J7030; J7040